=== PATIENT | female | born 1995 | race Caucasian/White ===

== ENCOUNTER 2025-05-05 09:33 | Inpatient (IN) | payer MEDICAID, SELFPAY ==
[2025-05-05] VITALS (92 sets, daily range): BP systolic 91–132; BP diastolic 50–66; PULSE 58–137; RESP 12–16; TEMP 36.8–37.3; O2SAT 81–100
[2025-05-05 09:24] LABS: Amnisure Rom* POSITIVE
--- NOTE | 2025-05-05 10:23 | PM.OBHPLI ---
OB - H&P: HPI Labor/Induction History of Present Illness Date Seen: 05/05/25 Chief Complaint: The patient is a 30 year old 2 para 1001 at 37.4 weeks gestation by LMP and consistent with 11 week US, who presents with SROM yesterday morning at 0600. Chief complaint: maternity : 2 Para: 1 Narrative: Alyse Cabrera is a 30 year old at 37.4 weeks by LMP and c/w 11 week US here with leaking fluid. She woke yesterday morning at 0600 with wet underwear and continued to have some leaking throughout the day yesterday and overnight. This morning she was advised to come in for evaluation and amnisure is positive. She had some cramping/mild contractions yesterday as well as loss of her mucous plug, but has not had contractions today. has been uncomplicated other than +GBS with pcn allergy (has tolerated cephalosporins without reaction). Prior baby was suspected LGA, but last US at ~35 weeks EFW 56% at 2587g. History of Present Dating criteria: based on LMP care: good care Ultrasounds: normal 1st trimester US and normal mid trimester US Medical complications: none Labs Blood type: A (+) positive Rubella: immune RPR/VDLR: nonreactive GBS status: positive HBsAG: negative Review of Systems Status of ROS: Reports: 6 or more systems reviewed and unremarkable except as noted in History and below Meds Home Medications and Allergies Home Medications ?Medication ?Instructions ?Recorded ?Confirmed ?Type albuterol sulfate 90 mcg/actuation 2 puff inhalation Q4H PRN dyspnea 05/05/25 05/05/25 History aerosol inhaler (Ventolin HFA) omeprazole 20 mg capsule,delayed 20 mg PO QAM 05/05/25 05/05/25 History release vit no.95-ferrous 1 tab PO DAILY 05/05/25 05/05/25 History fumarate 28 mg-folic acid 800 mcg tablet () sertraline 100 mg tablet 150 mg PO DAILY 05/05/25 05/05/25 History Allergies Allergy/AdvReac Type Severity Reaction Status Date / Time amoxicillin Allergy Unknown Verified 05/05/25 09:13 metronidazole (From Flagyl) Allergy Unknown Verified 05/05/25 09:13 OB - H&P: Exam Physical Exam: Vital signs: Temp Pulse Resp BP 98.4 F 85 16 119/66 05/05/25 10:06 05/05/25 10:05 05/05/25 10:06 05/05/25 10:05 Constitutional: Constitutional: no acute distress Routine HEENT Exam: Head: Present atraumatic Eye: Present EOMI and normal appearance ENT: Present mucous membranes moist Routine Neck Exam: Neck: Present full ROM Routine Respiratory Exam: Respiratory: Present CTA bilaterally Routine Cardiovascular Exam: Cardiovascular: RRR Routine Abdominal Exam: Comments: gravid, non tender Routine Exam: Perineum Description: Normal Detailed Labor and Delivery Exam: Patient Gravid: yes Dilation (cm): 2 Effacement (%): 50 Cervix position: mid Consistency: medium Cervical ripeness score: 4 Fetus (Single): Station: -3 Routine Extremities Exam: Extremities: Present full ROM and normal inspection Routine Back/Spine/Pelvis Exam: Back/Spine: full ROM Routine Skin Exam: Present intact and normal turgor Routine Neurological Exam: Present alert, oriented X3 and CN II-XII intact Routine Psychiatric Exam: Present normal affect OB - Problem Based A/P Additional Plan (1) Term : Status: Acute (2) SROM (spontaneous rupture of membranes): Status: Acute (3) Depression with anxiety: Status: Acute Plan Abx started for +GBS Will start with oral cytotec and transition to pitocin once cervix more favorable. Continue sertraline. Epidural per patient request. Anticipate . Delivery/Labor/Induction Plan Plan: induction Induction method: per misoprostol protocol
[2025-05-05] MEDS: LACTATED RINGERS 1000 ML 1,000 ML 125 ML IV ×2 (10:25→17:45)
[2025-05-05] MEDS: CEFAZOLIN 2 GM in 0.9 % SODIUM CHLORIDE Mini-bag 100 ML IVPB (10:30)
[2025-05-05 10:43] LABS: Hematocrit* 32.7 % (33.0-51.0); Hemoglobin* 10.8 gm/dL (12.0-16.0); Immature Granulocytes Abs Auto 0.04 K/uL (0.00-0.30); Immature Granulocytes Pct Auto 0.5 %; Mean Corpuscular HGB Conc 33 gm/dL (32-36); Mean Corpuscular Hemoglobin 27 pg (26-34); Mean Corpuscular Volume 81 fL (80-100); RDW Coefficient of Variation % 12.8 % (11.5-15.5); Red Blood Count* 4.03 m/uL (4.00-5.20); White Blood Count* 8.50 K/uL (4.50-11.00)
[2025-05-05 10:45] LABS: Lymphocytes Absolute Auto 1.20 K/uL (0.90-2.90); Slide Review Reflex No
--- NOTE | 2025-05-05 13:30 | PM.OBPNL ---
Subjective Date Seen: 05/05/25 Narrative: Alyse is a 30 yo at 37+4 weeks here with PROM. She has been getting oral cytotec, is feeling some contractions, mostly just uncomfortable cramping. Objective Vital Signs: Last Vital Signs Temp 98.4 F 05/05/25 12:14 Pulse 66 05/05/25 12:14 Resp 16 05/05/25 12:14 BP 108/65 05/05/25 12:14 Pulse Ox 98 05/05/25 12:14 Contractions Contraction pattern: Irregular Contraction intensity: Mild Assessment Assessment: induction ongoing Station: -3 Amniotic Membrane Status: SROM Status: Category l Heart Rate Baseline: 145 Nursing Home Variability: Moderate (6-25) Monitor Accelerations: Absent Monitor Decelerations: Variable Plan Plan: Continue cytotec, will transition to pitocin once able. Anticipate . Continue antibiotics per protocol for + GBS
[2025-05-05] MEDS: CEFAZOLIN 1 GM in 0.9 % SODIUM CHLORIDE Mini-bag 100 ML IVPB (17:19)
[2025-05-05] MEDS: BUPIVACAINE 0.25% PF 10 ML 10 ML ML EPIDURAL (17:52)
[2025-05-05] MEDS: ROPIVACAINE 0.2% 100 ml 100 ML 12 MG EPIDURAL (17:53)
[2025-05-05] MEDS: PHENYLEPHRINE 100 MCG/ML SYRINGE IVP ×4 (18:07→19:53)
--- NOTE | 2025-05-05 18:11 | PM.ANBPRC ---
PFSH PFS Medical History Asthma, mild intermittent ?J45.20 - Mild intermittent asthma, uncomplicated (ICD-10) PTSD (post-traumatic stress disorder) ?F43.10 - Post-traumatic stress disorder, unspecified (ICD-10) Depression with anxiety ?F41.8 - Other specified anxiety disorders (ICD-10) Surgical History Hx of wisdom tooth extraction ?K08.409 - Partial loss of teeth, unspecified cause, unspecified class (ICD-10) Hx of colonoscopy ?Z98.890 - Other specified postprocedural states (ICD-10) Family History Mother Asthma COPD (chronic obstructive pulmonary disease) Brother Asthma Maternal Grandfather No problems noted. Maternal Grandmother High blood pressure Social History What is your current living situation?: I presently have a place to live Problems where you live: no known problems In the past 12 months, utilities in danger of being shut off: no In past 12 months, lack of transportation kept you from medical appts, meetings, work, or getting things needed for daily living: no In the past 12 mos, have been you worried that your food would run out before you had money to buy more?: never true In the past 12 mos, the food you bought just didn't last and you didn't have money to buy more?: never true Smoking Status: Former smoker How often does anyone, including family, friends and others, physically hurt you: never How often does anyone, including family, friends and others, insult or talk down to you: sometimes How often does anyone, including family, friends and others, threaten you with harm: never How often does anyone, including family, friends and others, scream or curse at you: never Health Related Social Needs: Other personal risk factors, not elsewhere classified (Z91.89) Meds Home Medications and Allergies Home Medications ?Medication ?Instructions ?Recorded ?Confirmed ?Type albuterol sulfate 90 mcg/actuation 2 puff inhalation Q4H PRN dyspnea 05/05/25 05/05/25 History aerosol inhaler (Ventolin HFA) omeprazole 20 mg capsule,delayed 20 mg PO QAM 05/05/25 05/05/25 History release vit no.95-ferrous 1 tab PO DAILY 05/05/25 05/05/25 History fumarate 28 mg-folic acid 800 mcg tablet () sertraline 100 mg tablet 150 mg PO DAILY 05/05/25 05/05/25 History Allergies Allergy/AdvReac Type Severity Reaction Status Date / Time amoxicillin Allergy Unknown Verified 05/05/25 09:13 metronidazole (From Flagyl) Allergy Unknown Verified 05/05/25 09:13 Results Labs Labs: Laboratory Results - last 24 hr 05/05/25 05/05/25 10:22 Unknown WBC 8.50 RBC 4.03 Hgb 10.8 L Hct 32.7 L MCV 81 MCH 27 MCHC 33 RDW Coeff of Nestor 12.8 Plt Count 220 Neut % (Auto) 78.2 H Lymph % (Auto) 14.7 L [place] % (Auto) 6.0 Eos % (Auto) 0.4 Baso % (Auto) 0.2 Neut # (Auto) 6.60 Lymph # (Auto) 1.20 [place] # (Auto) 0.50 Eos # (Auto) 0.03 Baso # (Auto) 0.02 Abs Immat Gran (auto) 0.04 Imm/Tot Granulo (auto) 0.5 Membrane Rupture POSITIVE Blood Type A Positive Antibody Screen NEGATIVE Vital Signs Vital Signs: Last Vital Signs Temp 98.4 F 05/05/25 16:56 Pulse 65 05/05/25 18:11 Resp 16 05/05/25 16:17 BP 111/59 L 05/05/25 18:11 Pulse Ox 99 05/05/25 18:06 Weight: 97.658 kg Height: 167.64 cm Anesthesia Procedures Epidural Insertion Patient Location: OB Start Time: 17:30 Stop Time: 18:20 Start Date: 05/05/25 Stop Date: 05/05/25 Reason for Block: procedure for pain Patient Position: sitting Performed By: Hal Swift Preanesthetic Checklist: IV checked, risks and benefits discussed, surgical consent, monitors and equipment checked, pre-op evaluation, timeout performed and anesthesia consent Prep: chlorhexidine gluconate Monitoring: blood pressure monitoring, continuous pulse oximetry and heart rate Approach: midline Vertebral Space: lumbar (1-5) Epidural Technique: ALBERTO saline Needle Type: Tuohy needle Injection Technique: continuous catheter Needle gauge: 17 Needle Length (cm): 10 cm Needle Insertion Depth (cm): 6 Catheter Gauge: 19 Catheter Type: multi-orifice Catheter at skin depth (cm): 12 Test Dose Result: negative and lidocaine 1.5% with epinephrine 1 to 200,000
[2025-05-05] MEDS: OXYTOCIN 30 unit/500 ML in NS 30 UNIT/500 ML BAG IVPB (18:21)
--- NOTE | 2025-05-05 22:05 | W.PM.VAGD1_ITS ---
Procedure Delivery date: 05/05/25 Procedure Done: Global Events: Prolonged Rupture of Membrane Intrapartal Events: Labor Induction and ROM >18 Hours Delivery augmentation: pitocin Delivery monitor: external FHT and external uterine Route of delivery: Laceration description: Perineal - 2nd Degree Delivery repair: Vicryl Estimated blood loss (mL): 200 Anesthesia type: Epidural Disposition: floor Narrative: The patient is a 30 year-old admitted on 05/05/2025 at 37 Weeks, 4 Days gestation for SROM on 05/04/2025 at aproximately 0600.? Cervical exam on admission was 2 cm/50 % effaced/-3 station with membranes ruptured in vertex presentation.? Contractions were absent.? heart rate demonstrated baseline 140 bpm with moderate variability, - accelerations, - decelerations; a category 2 tracing.? SROM occurred at 0600 on 05/04/25 with clear fluid. On arrival, she was given oral cytotec for cervical ripening, over the next 9 hours her contractions became more regular and strong and she requested an epidural at [facility] time she was 5.5 cm. ? Labor Analgesia:? epidural ? Pitocin:? yes ? Labor onset:? 05/05/2025 at 1935 ? Complete:? 2058 ? Pushing:? 2103 ? heart tones during second stage were category 2. ? At 2129 a viable female infant delivered in vertex ROCKY presentation over intact perineum via spontaneous vaginal delivery.? Infant was placed on maternal abdomen.? Cord was clamped and cut after a 30-60 second delay.? Nose and mouth were bulb suctioned.? Infant weight pending.? 7 at 1 minute and 8 at 5 minutes.? Shoulder dystocia: no.? Nuchal cord: no. Did have a double true knot ? Placenta delivered spontaneously and complete at 2132 with a 3 vessel cord. ? Mother and infant were stable after delivery. ? Lacerations:? 2nd degree, repaired with 3-0 vicryl suture. ? Blood loss: 200 mL. Blood loss measurement type: QBL ? Sponge and needles counts are correct. [place] Gender: Female presentation: vertex Placental Delivery Description: Spontaneous Cord Description: True Knot (double) total score - 1 minute: 7 total score - 5 minute: 8
[2025-05-06] MEDS: IBUPROFEN 600 MG TABLET PO ×4 (02:59→19:57)
[2025-05-06 03:01] VITALS: BP 99/63; RESP 17; TEMP 36.6; O2SAT 98
[2025-05-06] MEDS: ACETAMINOPHEN 500 MG TABLET 1000 MG PO ×3 (06:20→19:01)
[2025-05-06 06:31] LABS: Hemoglobin* 9.6 gm/dL (12.0-16.0)
[2025-05-06 07:55] VITALS: BP 111/69; PULSE 63; RESP 16; TEMP 36.6; O2SAT 96
[2025-05-06] MEDS: DOCUSATE SODIUM 100 MG CAPSULE PO (09:09)
[2025-05-06 13:09] VITALS: BP 100/65; PULSE 67; RESP 16; TEMP 36.2; O2SAT 95
--- NOTE | 2025-05-06 14:31 | PM.ANPOST ---
Post Anesthesia Note Post Anesthesia Note Patient seen: Inpatient Respiratory Status: adequate Cardiovascular Status: adequate Mental Status: baseline Pain: adequate Temp: baseline Anesthetic awareness: N/A Complications: none Follow care: none
--- NOTE | 2025-05-06 15:32 | PM.OBPNVD1 ---
OB - PN:Subj Subjective Time Seen by Provider: 08:00 Date Seen: 05/06/25 Interval history: PPD #1 from . Feeling tired, otherwise well. Bleeding is appropriate, small gushes with activity. Some soreness of perineum. Voiding, no BM. has been a challenge, difficulty with latch. OB - PN: Obj Exam Physical Exam: Vital signs: Temp Pulse Resp BP Pulse Ox O2 Del Method 97.2 F L 67 16 100/65 95 Room Air 05/06/25 13:09 05/06/25 13:09 05/06/25 13:09 05/06/25 13:09 05/06/25 13:09 05/06/25 13:09 Narrative: General appearance: Well-appearing adult female. Alert, oriented and appropriate. Sitting up in hospital bed. HEENT: EOMI, no conjunctival injection or discharge. MMM. Neck: Supple. CV: RRR, no rubs, murmurs or extra heart sounds. Pulm: CTAB, no wheezes, rales or rhonchi. Abdomen: Soft, non-tender. Fundus palpated 2 cm below the umbilicus. MSK: Moving all extremities. Ext: Warm and well-perfused. No LE edema. Skin: No rashes appreciated over exposed skin. Neuro: Grossly normal strength and sensation. No focal deficits. Psych: Normal affect. OB - PN: Obj Data Labs Labs: Laboratory Results - last 24 hr 05/06/25 05:42 Hgb 9.6 L OB - PN: A/P Delivery Assessment and Plan (1) Term : Problem details: on 05/05 at 37+4w. Prolonged ROM with SROM 0600 on 05/04. 2nd degree perineal laceration. Status: Inactive Assessment and Plan: - Normal post- cares - to see - Anticipate discharge 05/07/25 (2) SROM (spontaneous rupture of membranes): Status: Resolved (3) Depression with anxiety: Status: Acute Assessment and Plan: - Continue [employer] sertraline 150 mg daily Plan day: 1 Plan: routine care
[2025-05-06 17:06] VITALS: BP 108/65; PULSE 66; RESP 18; O2SAT 95
[2025-05-06 19:57] VITALS: TEMP 36.2
[2025-05-07 08:00] VITALS: BP 115/74; PULSE 75; RESP 18; TEMP 36.7; O2SAT 98
--- NOTE | 2025-05-07 08:03 | PM.OBDSVD1 ---
DS: Providers Provider Date Seen: 05/07/25 Date of admission: 05/05/25 09:33 Primary care physician: Doretha Blakely CNP Admitting Clinician: Tayla Gómez MD Consults: 05/05/25 12:04 Consult to Line Construction Superintendent [CONS] Routine Comment: Reason for Consult:: Social Service Consult Attending Physician on discharge: Patrica Paredes DO Date of Discharge: 05/07/25 DS: Diagnosis Discharge Diagnosis (1) Status post vaginal delivery: Status: Acute Exam Const: Vital Signs, click to edit/add: Vital Signs - 24 hr 05/06/25 13:09 05/06/25 17:06 05/06/25 19:57 Temperature 97.2 F L 97.2 F L Pulse Rate [Pulse Oximeter] 67 66 Respiratory Rate 16 18 Blood Pressure [Le ft Arm] 100/65 108/65 Pulse Oximetry 95 95 Oxygen Delivery Me thod Room Air Room Air Common normals: no apparent distress, oriented x3, alert and well nourished Resp: Common normals: normal respiratory effort and clear to auscultation bilaterally Auscultation: clear to auscultation bilaterally Cardio: Common normals: regular rate, regular rhythm and no murmurs Rate: regular rate Rhythm: regular rhythm GI: Other: fundus firm at umbilicus Neuro: Common normals: oriented x3 Sensorium/orientation: alert OB - DS: Summary Hospital Course Hospital Course: The patient is a 30 year old G 2 P 2 at 37.4 weeks gestation that was admitted to the Center on 05/05/25 for SROM. SROM was prolonged, occurring 05/04/2025 at aproximately 0600. On arrival, she was given oral cytotec for cervical ripening, over the next 9 hours her contractions became more regular and strong. She progressed to complete and had an uncomplicated vaginal delivery at 2130. She delivered a viable female with Apgars of 7 and 8. She is breast feeding. , the patient has done well. Normal appetite, ambulating independently, appropriate lochia. [place] Infant Gender: Female Infant Discharge Plan: Home Status at Discharge Functional status at discharge: independent ambulation Overall status at discharge: patient is back to baseline Discharge Plan Discharge Disposition: Home, Self-Care Date of Admission: 05/05/25 09:33 Attending Provider on Discharge: Patrica Paredes Primary Care Provider: Doretha Blakely Condition: Stable Anticipated Discharge Date/Time: 05/07/25 08:07 Discharge Medications: New acetaminophen 500 mg Tablet 1,000 mg PO Q6H PRNQty: 40 0RF ibuprofen 600 mg Tablet 600 mg PO Q6H PRNQty: 20 0RF Continued PNV no.95-ferrous fumarate-FA [] 28 mg iron- 800 mcg tablet 1 tab PO DAILY sertraline 100 mg tablet 150 mg PO DAILY albuterol sulfate [Ventolin HFA] 90 mcg/actuation HFA aerosol inhaler 2 puff INHALATION Q4H PRN (Reason: dyspnea) Discontinued omeprazole 20 mg capsule,delayed release(DR/EC) 20 mg PO QAM Discharge Orders: Discharge Order (Routine); Ordered 05/07/25 Ordered By: Patrica Paredes Patient Education: OB Vaginal/Breast Feeding Follow Up Appointments: Tayla Gómez MD [Staff Physician, Family Practice] [facility] Discharge Comments: Follow up with primary [facility] provider in 6 weeks, sooner if concerns arise.
[2025-05-07] MEDS: DOCUSATE SODIUM 100 MG CAPSULE PO (08:35)
[2025-05-07] MEDS: ACETAMINOPHEN 500 MG TABLET 1000 MG PO (08:35)
[2025-05-07] MEDS: IBUPROFEN 600 MG TABLET PO (10:44)
== END 2025-05-07 11:30 | disposition home or self-care (01) | DRG 807 ==
LOC: OB OUT 09:33 → OB 09:33
PROVIDERS: Admitting Provider Family Medicine; PCP Family Medicine; Visit Provider Family Medicine
DX: O42.12 Full-term premature rupture of membranes, onset of labor more than 24 hours following rupture (principal); Z37.0 Single live birth; O99.824 Streptococcus B carrier state complicating childbirth; O36.63X0 Maternal care for excessive fetal growth, third trimester, not applicable or unspecified; O70.1 Second degree perineal laceration during delivery; O99.344 Other mental disorders complicating childbirth; F41.8 Other specified anxiety disorders; F43.10 Post-traumatic stress disorder, unspecified; J45.20 Mild intermittent asthma, uncomplicated; Z3A.37 37 weeks gestation of pregnancy
CPT/HCPCS: 01967; 36415; 59200; 84112; 85018; 85025; 86592; 86850; 86900; 86901; A9270; J0665; J0690; J2795; J7120